=== PATIENT | male | born 2000 | race Caucasian/White ===

== ENCOUNTER 2021-08-15 08:34 | Emergency (ER) | payer MEDICAID | END 2021-08-15 11:50 | disposition home or self-care (01) | LOC: FB.ED 08:34 | DX: A05.9 Bacterial foodborne intoxication, unspecified (principal); J45.20 Mild intermittent asthma, uncomplicated; Z88.5 Allergy status to narcotic agent; Z20.822 Contact with and (suspected) exposure to COVID-19 | CPT/HCPCS: 87651-QW; 99282; 99284; U0002 ==